=== PATIENT | female | born 1945 | race African-American/Black ===

== ENCOUNTER 2019-10-01 13:52 | Emergency (ER) | payer OTHER ==
[2019-10-01 14:18] VITALS: BP 145/70; PULSE 75; TEMP 98.5; BMI 25.5
--- NOTE | 2019-10-01 14:30 | PDOC ---
Attending Attestation - Resident Resident Name: SandovalMickey - ED Attending Attestation I have performed the following: I have examined & evaluated the patient, The case was reviewed & discussed with the resident, I agree w/resident's findings & plan, Exceptions are as noted - HPI HPI: 10/01/19 16:32 Ms. Walters is a 74 yo F w/o PMH presenting with cough, congestion, runny nose, sore throat since 09/24 while in [place] / [place]. [place] to [place] 09[place]27. States symptoms have not resolved but are improved compared to the first 3 days of illness. She has waxing and waning feelings of weakness Endorses b/l posterior lower costal pain that is worse w/ movement. Denies f/c, cp/sob/palpitations, n/v/d, dysuria, po intolerance. Boyfriend who went on trip with pt was also sick w/ similar sx but has since recovered. No h/o VTE. Allergy to PCN Does not smoke - Physicial Exam PE: 10/01/19 14:30 GENERAL: The patient is in no acute distress. ENT: Ears normal, nares patent, oropharynx clear without exudates. Moist mucous membranes. NECK: Normal range of motion, supple LUNGS: Breath sounds equal, clear to auscultation bilaterally. No wheezes, and no crackles. HEART:Regular rate and rhythm, normal S1 and S2 without murmur, rub or gallop. ABDOMEN: Soft, nontender, normoactive bowel sounds. EXTREMITIES: Normal range of motion, no edema. NEUROLOGICAL: Cranial nerves II through XII grossly intact. Normal speech. No focal neurological deficits. SKIN: Warm, Dry, normal turgor, no rashes or lesions noted. - Medical Decision Making 10/01/19 16:33 Laboratory Tests 10/01/19 10/01/19 15:00 15:00 WBC 9.1 Hgb 14.5 Hct 44.0 Plt Count 215 BUN 16[address] performed: No evidence of pulmonary embolism Will discharge to home Follow-up with primary care physician Return to the ER for any other concerns or complaint Patient symptoms likely viral syndrome
[2019-10-01 15:24] LABS: BASO % 0.6 % (0-2.0); EOS % 3.9 % (0-4.5); HEMOGLOBIN 14.5 GM/dl (10.7-15.3); LYMPH % 29.9 % (8-40); MCH 28.6 pg (25.7-33.7); MCHC 32.9 g/dl (32.0-36.0); MEAN CELL VOLUME 87.1 fl (80-96); MEAN PLT VOLUME 8.2 fl (7.5-11.1); NEUT % 59.6 % (42.8-82.8); PLATELET COUNT 215 K/MM3 (134-434); RBC 5.05 M/mm3 (3.60-5.2); RDW 12.9 % (11.6-15.6); WHITE BLOOD COUNT 9.1 K/mm3 (4.0-10.8)
[2019-10-01 15:31] LABS: ALBUMIN 4.1 g/dl (3.4-5.0); BILIRUBIN,TOTAL 0.4 mg/dl (0.2-1); CALCIUM 9.3 mg/dl (8.5-10); POTASSIUM 4.3 mmol/L (3.5-5.1); TOT PROT 6.7 g/dl (6.4-8.2)
--- NOTE | 2019-10-01 15:36 | PDOC ---
History of Present Illness - General Chief Complaint: Respiratory Stated Complaint: COUGH AND BODY ACHES Time Seen by Provider: 10/01/19 14:09 - History of Present Illness Initial Comments: 74F w/o PMH presenting with cough, congestion, runny nose, sore throat since while in [place] / [place]. [place]. States symptoms have no resolved but are improved compared to the first 3 days of illness. Endorses b/l posterior lower costal pain that is worse w/ movement. Denies f/c, cp/sob/palpitations, n/v/d, dysuria, po intolerance. Boyfriend who went on trip with pt was also sick w/ similar sx but has since recovered. No h/o VTE. Allergy to PCN Does not smoke Past History - Past Medical History Allergies/Adverse Reactions: Allergies Allergy/AdvReac Type Severity Reaction Status Date / Time Penicillins Allergy Rash Verified 02/27/16 11:20 Home Medications: Ambulatory Orders NK [No Known Home Medication] 02/27/16 COPD: Yes Other medical history: DENIES - Psycho Social/Smoking Cessation Hx Smoking History: Never smoked Information on smoking cessation initiated: No Hx Alcohol Use: Yes (OCCASSIONAL) Drug/Substance Use Hx: No Substance Use Type: None Review of Systems - Review of Systems Comments:: CONSTITUTIONAL: Denies persistent F / C (states there was one day she felt subjectively warm but since resolved) HEENT: Endorses congestion, rhinorrhea. Denies headache, lightheadedness, dizziness, changes in vision / hearing, diplopia, blurry vision RESP: Endorses cough. Denies SOB CARD: Endorses costal pain w/ movement. Denies chest pain, palpitations GI: Denies N / V / D, abdominal pain, bloody stool, inability to tolerate PO : Denies dysuria, hematuria, frequency SKIN: Denies rashes NEURO: Denies numbness, tingling, weakness MSK: Denies back pain, swelling of the legs. *Physical Exam - Vital Signs Last Vital Signs Temp Pulse Resp BP Pulse Ox 98.5 F 75 16 145/70 98 10/01/19 14:03 10/01/19 14:03 10/01/19 14:03 10/01/19 14:03 10/01/19 14:03 - Physical Exam GEN: Well appearing, NAD, comfortable. AAOx3. HEENT: NC/AT, EOMI, PERRL. No facial asymmetry. Moist mucous membranes, mildly erythematous posterior oropharynx. No sinus TTP. Normal voice. Supple neck w/ FROM. CV: S1/S2, RRR, no m/r/g. Minimal TTP of posterior lower costal margins ( described as soreness) LUNG: CTAB, no wheezes, crackles, rales, rhonchi. GI: Soft, ndnt, +BS, no guarding, no rebound. No masses. EXTREMITIES: No LE edema. No calf TTP. No obvious deformities of all extremities. SKIN: Warm, dry, no rashes appreciated. PSYCH: Normal mood and affect. NEURO: Moving all extremities well. Ambulates w/ normal gait. ED Treatment Course - LABORATORY CBC & Chemistry Diagram: 10/01/19 15:00 10/01/19 15:00 - RADIOLOGY Radiology Studies Ordered: Category Date Time Status CHEST CTA [CT] Stat CT Scan 10/01/19 14:39 Ordered Medical Decision Making - Medical Decision Making 10/01/19 15:23 74F with cough, congestion, runny nose, sore throat since 09/24 while in [place] / [place]; returned 09/27. Afebrile, appears well non-toxic, benign exam. likely URI, bronchitis, sinusitis. Unlikely 2018 nCoV since no travel to [facility] and no close contacts with known cases. r/o PE but likely pleuritis - cbc, cmp - CTA will eval for PE and Pulmonary processes 10/01/19 16:25 labs reviewed reassuring CTA neg DC home Discharge - Discharge Information Problems reviewed: Yes Clinical Impression/Diagnosis: Cough Condition: Stable Disposition: HOME - Admission No - Follow up/Referral Referrals: Libra Delgadillo [Primary Care Provider] - - Patient Discharge Instructions Patient Printed Discharge Instructions: DI for Cough -- Adult Additional Instructions: Take cough medicine as directed on the label for your cough. Take ibuprofen as directed on the label if you experience any sore throat. See your primary care doctor in the next 3-5 days. Return to the Emergency Department if you experience: - worsening cough - fevers - shortness of breath - chest pain - anything that concerns you - Post Discharge Activity
== END 2019-10-01 16:43 | disposition home or self-care (01) ==
LOC: FER 13:52
DX: R05 Cough (principal); Z88.0 Allergy status to penicillin; J44.9 Chronic obstructive pulmonary disease, unspecified
CPT/HCPCS: 36415; 71275-TC; 80053; 85025; 99283-25; Q9967